=== PATIENT | male | born 1965 | race Caucasian/White ===

== ENCOUNTER 2016-10-14 07:54 | Inpatient (IN) | payer OTHER ==
--- NOTE | ~2016-10-14 | HP ---
Unit #: [id number] #: [id number] Patient: KARI MERCER [id number] [facility]. [place], [place] [address] [id number] Dinora MR#: [id number] NAME: KARI MERCER. ROOM: 75758 Age: 51 Sex: M Admission Date: 10/14/2016 : 1965 Attending Physician: Rosalind Zhao M.D. Primary Care Physician: No Primary Care Physician HISTORY AND PHYSICAL CHIEF COMPLAINT Back pain. HISTORY OF PRESENT ILLNESS The patient is a 51-year-old male with past medical history of epidural abscess, substance abuse, coronary artery disease who presented to the emergency department for evaluation of the above. History is obtained from chart review and discussion with ER staff due to the patient's altered mental status. I also spoke with a family friend, Jayden Read, who was at the bedside. The patient was apparently recently hospitalized at [facility] for epidural abscess. He was discharged to rehab. He has apparently been home for about two weeks. He was moving some furniture and experienced back pain. He then snorted methamphetamine in attempts to relieve the pain (per the family friend). There is no indication that he was trying to harm himself. He was then noted to be quite agitated by family and so EMS was called. Upon arrival in the emergency department, the patient's temperature and pulse were 98.9 and 123 respectively, blood pressure 155/109. He was alert and oriented but again severely agitated. He received 20 mg of Geodon. Laboratory is notable for white blood cell count of 19.6. Urine tox screen is positive for amphetamine and opiates. Lactic acid is 0.8. Chest x-ray shows perihilar opacity. He was given vancomycin in the emergency department. He is being admitted to [facility] for evaluation and further treatment. PAST MEDICAL HISTORY 1. Hospitalized at [facility] for epidural abscess (no records). 2. Coronary artery disease, status post cardiac stent placement. SOCIAL HISTORY The patient has a history of substance abuse including methamphetamines. He is a smoker. FAMILY HISTORY Notable for other family members being substance abusers per the family friend at bedside. ALLERGIES No known allergies. HOME MEDICATIONS Listed as "muscle relaxer." Home medications will need to be reviewed and Unit #: [id number] #: [id number] Patient: KARI MERCER verified. REVIEW OF SYSTEMS A complete review of systems is unobtainable from the patient due to altered mental status. DIAGNOSTIC STUDIES LABORATORY: Urinalysis notable for trace protein. Complete blood count notable for white blood cell count of 19.6, hemoglobin 12.5, hematocrit 38.2. Comprehensive metabolic panel notable for bicarbonate of 20, BUN and creatinine 30 and 1.4 respectively. AST 62. CK is 2738. Urine tox screen positive for amphetamine and opiates. Lactic acid is 0.8. IMAGING: Chest x-ray shows left perihilar opacity. CARDIOVASCULAR: EKG shows sinus tachycardia with a rate of 104 beats per minute. PHYSICAL EXAMINATION VITAL SIGNS: Temperature is 98.9, pulse 123, respirations 21, blood pressure 155/109 (most recently 130/88), oxygen saturation 96% on room air. GENERAL: The patient is a male who is currently sleeping. He received 20 mg of Geodon. HEENT: The head is atraumatic. Mucous membranes are moist. NECK: Supple. Trachea is midline. CARDIOVASCULAR: Regular rate and rhythm. LUNGS: Clear to auscultation bilaterally with no increased work of breathing. ABDOMEN: Soft, nontender with bowel sounds present in all four quadrants. EXTREMITIES: Nontender with no pedal edema. NEUROLOGIC: The patient was alert and oriented x3 on presentation. He is currently sleeping. He does move all extremities. PSYCHIATRIC: The patient was initially quite agitated. SKIN: Skin of examined areas is warm and dry. ASSESSMENT The patient is a 51-year-old male with: 1. Methamphetamine overdose, unintentional. 2. Rhabdomyolysis with CPK of 2738. 3. Possible sepsis. The patient does have a history of epidural abscess. Chest x-ray shows perihilar opacity concerning for possible aspiration. 4. History of epidural abscess (no records). 5. Possible aspiration pneumonia. 6. Coronary artery disease, status post stent placement. 7. Tobacco abuse. PLAN 1. Admit to intermediate level. 2. Consult Dr. Smith regarding substance abuse. 3. Neuro checks. 4. Normal saline at 150 mL an hour. 5. Get records from [facility]. 6. Blood cultures x2. 7. CT of the lumbar and thoracic spine with IV contrast for further evaluation of epidural abscess. 8. Vancomycin IV and Zosyn IV pending further workup. 9. Serial cardiac enzymes. Unit #: [id number] #: [id number] Patient: KARI MERCER 10. Repeat labs in the morning including CPK. 11. Additional workup and consultants based on above. Dictated by Andie Horvath TD: 10/14/2016 12:16 JOB #: [id number] HISTORY AND PHYSICAL X Rosalind Zhao MD X HISTORY AND PHYSICAL
--- NOTE | ~2016-10-14 | CR72 ---
[facility] A Service of [facility] RADIOLOGY TEXT RESULTS PATIENT: KARI MERCER LOCATION: [facility] 338-01 : [birth year] UNIT #: [id number] AGE: [address]: Thiago Rodriguez MD SEX: M ORDER DR: [id number] [facility] [address] [facility]. [place], [place] [address] [id number] I MR#: [id number] Acc #: [id number] NAME: KARI MERCER. : 1965 SEX: M STUDY DATE/TIME: 10/14/2016 09:26 UNIT: [address] ROOM: [facility] STUDY DESCRIPTION: CR Chest Single View Portable Attending Physician: Rosalind Zhao M.D. Ordering Physician: Sixto Mcgregor M.D. Primary Care Physician: No Primary Care Physician MEDICAL IMAGING REPORT This report is preliminary unless electronic signature is present EXAM Chest portable 10/14/2016 0926 hours CLINICAL HISTORY 51-year-old man with altered mental status and shortness of air today. COMPARISON None. FINDINGS Portable upright chest demonstrates normal heart size. Mediastinal and hilar contours are normal. There is mild perihilar vascular crowding. There is mild interstitial change in the left midlung perihilar region with calcified granuloma present. No definite acute pulmonary density on the right. There are no effusions. IMPRESSION Portable exam demonstrates mild perihilar and infrahilar interstitial change on the left with an adjacent calcified granuloma. Vascular crowding and/or atelectasis is favored over pneumonia. Consider followup two-view chest film to reevaluate the left infrahilar region. No effusion or pneumothorax is seen. Dictated by... Lesa Hernandez M.D. THIS IS AN ELECTRONICALLY VERIFIED REPORT Lesa Hernandez M.D. at 10/15/2016 9:17 AM Marc TD: 10/14/2016 14:38 JOB #: [id number] [facility] A Service of [facility] RADIOLOGY TEXT RESULTS PATIENT: KARI MERCER LOCATION: [facility] 338-01 : [birth year] UNIT #: [id number] AGE: [address]: Thiago Rodriguez MD SEX: M ORDER DR: MEDICAL IMAGING REPORT COPY
--- NOTE | ~2016-10-14 | DS ---
Unit #: [id number] #: [id number] Patient: KARI MERCER [id number] [address] [address] [id number] I MR#: [id number] NAME: KARI MERCER. ROOM: 338 Age: 51 Sex: M Admission Date: 10/14/2016 : 1965 Discharge Date: 10/16/2016 Attending Physician: Thiago Rodriguez M.D. Primary Care Physician: No Primary Care Physician DISCHARGE SUMMARY PRIMARY DIAGNOSIS Unintentional methamphetamine overdose. SECONDARY DIAGNOSES 1. Rhabdomyolysis. 2. Possible sepsis with history of epidural abscess. 3. Perihilar opacity on chest x-ray, possibly representing aspiration. 4. Coronary artery disease with history of stent. 5. Tobacco abuse. Patient was admitted to the hospital. He underwent imaging with a CT of the thoracic spine which showed stable changes in the left posterior lung compared to August 2016. No evidence of any primary or secondary spinal involvement. No evidence of any epidural collection. He underwent CT of the lumbar spine as well which showed chronic discitis at L2-L3 without any worsening compared to previous imaging. He also had a chest x-ray. Please see that report for details. The patient's CK level decreased to a level of 780 on the morning of October 15. His urine drug screen was positive for amphetamines and opiates at this hospitalization. Patient ultimately left against medical advice on October 16, 2016, prior to me being able to evaluate him. He was afebrile throughout his hospitalization with stable vital signs. His white blood cell count had improved markedly compared to admission down to a level of 5.8 on October 15. I do not believe he had his labs drawn on the prior to him leaving against medical advice. DISCHARGE DISPOSITION Against medical advice. DISCHARGE STATUS Unable to be determined as patient left AMA prior to being able to be evaluated. Discharge diet, activities and medications are not applicable as patient left against medical advice. Dictated by... Elmo Naqvi M.D. MIQUEL/tashi Unit #: [id number] #: [id number] Patient: KARI MERCER TD: 10/16/2016 13:25 JOB #: [id number] DISCHARGE SUMMARY X Elmo Naqvi MD X DISCHARGE SUMMARY
--- NOTE | ~2016-10-14 | CT96 ---
[facility] A Service of [facility] RADIOLOGY TEXT RESULTS PATIENT: KARI MERCER LOCATION: [facility] 338-01 : [birth year] UNIT #: [id number] AGE: [address]: Rosalind Zhao MD SEX: M ORDER DR: [id number] [facility]. [place], [place] [address] [id number] I MR#: [id number] Acc #: [id number] NAME: KARI MERCER. : 1965 SEX: M STUDY DATE/TIME: 10/14/2016 13:22 UNIT: [address] ROOM: [facility] STUDY DESCRIPTION: CT Lumbar Spine W Cont Attending Physician: Rosalind Zhao M.D. Ordering Physician: Rosalind Zhao M.D. Primary Care Physician: No Primary Care Physician MEDICAL IMAGING REPORT This report is preliminary unless electronic signature is present EXAM Lumbar spine CT with contrast HISTORY Upper and lower back pain. Recent surgery. Back pain for the past day. Previous history of epidural abscess. TECHNIQUE Axial imaging was obtained through the lumbar spine with intravenous contrast. 100 mL of Isovue was used. This CT exam was performed with one or more of the following radiation dose reduction techniques: automatic control, adjustment of mA and/or kV according to patient size, and iterative reconstruction. COMPARISON Examination from 08/21/2016 FINDINGS Postoperative changes of laminectomy are seen at L2 and L3. The L2-3 disc is irregular with sclerotic margins. The laminectomy is new since the previous examination. Endplate sclerosis has increased. No significant progression of bone destruction is seen. No paraspinous fluid collections or enhancing lesions are noted. Degenerative disc disease at L3-4, L4-5 and L5-S1 is again seen and shows no worsening since the previous exam. IMPRESSION Chronic diskitis is noted at L2-3. Since the previous examination sclerosis has increased and no progressive bone destruction is seen. No evidence of any significant worsening since the previous examination. No rim enhancing abscesses are seen either in the epidural space or paraspinous tissues. No changes at the other lumbar levels. Dictated by... [facility] A Service of [facility] RADIOLOGY TEXT RESULTS PATIENT: KARI MERCER LOCATION: [facility] 338-01 : [birth year] UNIT #: [id number] AGE: [address]: Rosalind Zhao MD SEX: M ORDER DR: Kvng Jarquin M.D. THIS IS AN ELECTRONICALLY VERIFIED REPORT Kvng Jarquin M.D. at 10/15/2016 8:20 AM RLTarik/abbi TD: 10/14/2016 19:52 JOB #: [id number] MEDICAL IMAGING REPORT COPY
--- NOTE | ~2016-10-14 | CO ---
Unit #: [id number] #: [id number] Patient: KARI GOMEZ [id number] [facility] [address] [facility]. [place], [place] [address] [id number] MR#: [id number] NAME: KARI GOMEZ. ROOM: 338 Age: 51 Sex: M Admission Date: 10/14/2016 : 1965 Attending Physician: Thiago Rodriguez M.D. Primary Care Physician: Primary Care Physician No Consultation Date: 10/15/2016 CONSULTATION REPORT REASON FOR CONSULTATION Opioid abuse, amphetamine abuse, withdrawal symptoms. HISTORY OF PRESENT ILLNESS Mr. Kari Gomez is a 51-year-old male, seen on 10/15/2016 in room 338 at [facility]. The patient dressed in hospital attire, very mad, angry, upset, agitated. The patient was upset about his substance abuse history. The patient reports that he is upset with his sister. The patient has a history of previous treatment at [facility] in 2013. The patient admitted using amphetamine and opioids. The patient urine drug screen was positive for amphetamine and opioids. The patient reported trouble sleeping, hot and cold sweats, some irritability, restlessness, anxiety, agitation, but currently denied any suicidal or homicidal ideation. Denied any psychotic symptom. The patient was started on Neurontin and Vistaril combination. The patient reports able to sleep better. PAST PSYCHIATRIC HISTORY Remarkable for history of polysubstance abuse and history of inpatient treatment. No history of any suicide attempt. MEDICAL HISTORY History of coronary artery disease, back pain, history of epidural abscess. MEDICATIONS The patient is currently on Neurontin, Vistaril, Desyrel, Zosyn. FAMILY HISTORY AND SOCIAL HISTORY The patient lives with his sister. The patient admitted using opioids and amphetamines. No history of any abuse. REVIEW OF SYSTEMS Complete review of systems is unremarkable except for pain in his back, anxiety, agitation, and mood lability. MENTAL STATUS EXAMINATION General appearance; the patient is average built, dressed in hospital attire, receiving IV fluids, somewhat mad, angry, upset, agitated. Attention span and concentration, fair. Speech, regular rate and coherent. Oriented in time, place, and person. Mood and affect were labile. Thought process was coherent. Thought content, the patient denied any thoughts of harming self or others or any psychotic symptom. Recent and remote memory, fair. Language, able to name object, repeat phrases. Fund of knowledge, fair. Insight and judgment, fair to slightly Unit #: [id number] #: [id number] Patient: KARI GOMEZ. DIAGNOSES Psychiatric: Opioid use disorder, severe, F11.20; amphetamine use disorder, F15.20; mood disorder, not otherwise specified F32.9. Secondary diagnosis: Deferred. Medical diagnosis: Please refer to H and P. Stressors: Psychosocial stressors. ASSESSMENT/PLAN 1. Supportive psychotherapy and psychoeducation provided to the patient. 2. Educated about benefits and side effects of medication and course and prognosis of illness. Advised to continue with the Neurontin 300 mg t.i.d., Vistaril 50 mg t.i.d. If needed, consider further adjustment of medication. Please feel free to call if any questions, telephone #[phone]. Dictated by... Andie Lau/bonita TD: 10/16/2016 01:11 JOB #: [id number] CONSULTATION REPORT X Bishnu Smith MD X CONSULTATION REPORT
--- NOTE | ~2016-10-14 | CT120 ---
[facility] A Service of [facility] RADIOLOGY TEXT RESULTS PATIENT: KARI MERCER LOCATION: [facility] 338- : [birth year] UNIT #: [id number] AGE: [address]: Thiago Rodriguez MD SEX: M ORDER DR: [id number] [facility] [address] [facility]. [place], [place] [address] [id number] I MR#: [id number] Acc #: [id number] NAME: KARI MERCER. : 1965 SEX: M STUDY DATE/TIME: 10/14/2016 13:22 UNIT: [address] ROOM: [facility] STUDY DESCRIPTION: CT Thoracic Spine W Cont Attending Physician: Rosalind Zhao M.D. Ordering Physician: Rosalind Zhao M.D. Primary Care Physician: No Primary Care Physician MEDICAL IMAGING REPORT This report is preliminary unless electronic signature is present EXAM Thoracic spine CT with contrast date of study is 10/14/2016 PROCEDURE Axial contrast-enhanced thoracic spine CT with multiplanar reformats. COMPARISON Abdominal and pelvic CT dated 08/20/2016. CLINICAL HISTORY History of epidural abscess and spinal fusion. TECHNIQUE This CT exam was performed with one or more of the following radiation dose reduction techniques: automatic control, adjustment of mA and/or kV according to patient size, and iterative reconstruction. FINDINGS There is a very slight scoliosis but no cassidy or retrolisthesis fracture or bone erosion or destruction. There is no mediastinal mass, though there are changes in the left posterior lung, which are probably unchanged since 08/20/2016. There is no evidence of bony erosion or destruction or intraspinal or paraspinal fluid collection or other acute spinal abnormality. IMPRESSION Stable changes in the left posterior lung. No gross apparent change since 08/20/2016. No evidence of secondary or primary spinal involvement. No spinal bone erosion or destruction or acute abnormality. No evidence of epidural collection or other acute finding. Dictated by... Naga Rincon M.D. [facility] A Service of [facility] RADIOLOGY TEXT RESULTS PATIENT: KARI MERCER LOCATION: [facility] 338-01 : [birth year] UNIT #: [id number] AGE: [address]: Thiago Rodriguez MD SEX: M ORDER DR: THIS IS AN ELECTRONICALLY VERIFIED REPORT Naga Rincon M.D. at 10/15/2016 4:12 PM TEV/abbi TD: 10/14/2016 20:06 JOB #: [id number] MEDICAL IMAGING REPORT COPY
--- NOTE | ~2016-10-14 | EKG ---
PATIENT: KARI MERCER UNIT #: [id number] Ventricular Rate: 104 BPM Atrial Rate: 104 BPM P-R Interval: 132 ms QRS Duration: 84 ms Q-T Interval: 326 ms QTC Calculation(Bezet): 428 ms P Cylinder: 86 degrees Calculated R Cylinder: 79 degrees Calculated T Cylinder: 81 degrees Diagnosis Line: Sinus tachycardia Diagnosis Line: Otherwise normal ECG Diagnosis Line: When compared with ECG of 25-JAN-2014 11:52, Diagnosis Line: Vent. rate has increased BY 37 BPM Diagnosis Line: Confirmed by KIRSTEN MOON MD ([id number]) on 10/15/2016 Diagnosis Line: 12:04:25 PM INTERPRETING MD: RED WALKER
--- NOTE | ~2016-10-14 | CO ---
Unit #: [id number] #: [id number] Patient: KARI MERCER [id number] [address] [address] [id number] MR#: [id number] NAME: KARI MRECER. ROOM: 338 Age: 51 Sex: M Admission Date: 10/14/2016 : 1965 Attending Physician: Thiago Rodriguez M.D. Primary Care Physician: No Primary Care Physician Consultation Date: 10/16/2016 CONSULTATION REPORT REASON FOR CONSULTATION Antibiotic management in a patient with a history of recent epidural abscess. HISTORY OF PRESENT ILLNESS This is a 51-year-old male with a history of IV drug abuse that was recently at [facility] in August of 2016. [facility] records were reviewed. The patient, at that time, had an MRSA sepsis with lumbar epidural abscess and left psoas abscess, status post IR drainage of his psoas abscess and epidural abscess drainage by neuro surgery. The patient was on vancomycin until 10/04/2016 which the patient reports that he took at a snf. His SIXTO at that facility was negative. The patient reports that he was discharged and he was at home for a few weeks. Patient then was brought to the emergency room by his sister. Patient sitting in a chair. He does not know why his sister brought him. She said he was "acting goofy." Patient currently denies any fevers/chills at home. He reports he is unaware of any drainage from his spinal wound. He does report increasing back pain; however, he is unclear why pain meds are not being administered to him. Patient was placed on vancomycin and ID was asked to evaluate for further evaluation. Patient was found on admission also to have some severe agitation, rhabdomyolysis and questionable aspiration pneumonia. PAST MEDICAL HISTORY 1. Coronary artery disease, status post stent placement in the past. 2. Chronic back pain. 3. IV drug abuse. PAST SURGICAL HISTORY Includes L2-3 diskitis with left psoas abscess drainage and L2-3 epidural abscess, status post drainage. ALLERGIES No known allergies. MEDICATIONS Patient is currently on vancomycin and Zosyn. For other medications, please refer to patient's MAR. SOCIAL HISTORY Positive IV drug abuse. REVIEW OF SYSTEMS Patient denies any headache to me. He denies any fever, chills or sweats Unit #: [id number] #: [id number] Patient: KARI MERCER at home. he denies any chest pain. He denies any shortness of breath, cough or wheezing. He denies any nausea, vomiting or diarrhea. He does report some positive back pain but is unaware of any drainage. He denies any non-healing wounds. He denies any UTI signs or symptoms. PHYSICAL EXAMINATION VITAL SIGNS: Temperature 97.8, pulse is 81, blood pressure 137/76, respiratory rate is 22. GENERAL: This is an awake male who is sitting in the chair comfortably. HEENT/NECK: His pupils are equal. His neck is supple. CARDIOVASCULAR: S1, S2. Regular rate and rhythm. PULMONARY: Clear to auscultation bilaterally with no wheezes or rhonchi noted. ABDOMEN: Positive bowel sounds. Soft and nontender. EXTREMITIES: No clubbing, cyanosis or edema. SPINE EXAM: Shows in the lumbar region he does have a healing scabbed incision with some scant serous drainage. There is no purulent drainage noted. There is some surrounding healing tissue but no cellulitis. DIAGNOSTIC STUDIES LABORATORY: BUN 14, creatinine 0.7, sodium 136, potassium 3.9, chloride 111, CO2 23, bilirubin 0.8, AST 44, ALT 31. CK total 780 which is improved from 2738 on admission. Lactic acid 0.9. White blood cell count of 5.8 which is improved from 19.6. Hemoglobin 11.2, hematocrit 34.1, platelets 248. Tox screen shows positive amphetamines and opiates. Urinalysis is unremarkable. Blood cultures are currently pending. Outside hospital blood cultures show MRSA. No ANI is known at this time. Blood cultures were negative at discharge on 08/26/2016. He had a body fluid culture from that admission that also showed MRSA. IMAGING: Chest x-ray - perihilar and infrahilar interstitial changes on the left side with vascular crowding and atelectasis favoring pneumonia. CT scan of the lumbar spine with contrast shows chronic discitis at L2-3. No progressive bone destruction, no evidence of worsening since prior examination. No rim-enhancing abscess. No paraspinal abscess. CT scan of the thoracic spine is negative. IMPRESSION This is a 51-year-old male with IV drug abuse, recently at [facility] in August 2016 secondary to MRSA sepsis with lumbar epidural abscess of L2-3 region, status post drainage and left psoas abscess, status post drainage. Patient was on vancomycin until October 04, 2016, at the snf. At that admission his SIXTO was negative for vegetation. Patient has been at home and his sister presented him to the hospital due to altered mental status. The patient was found to have rhabdomyolysis and suspected overdose and aspiration pneumonia. CT scan is negative for acute changes. Blood cultures are currently negative to date. However, there is concern for aspiration pneumonia. At this time, agree with vancomycin and Zosyn. Clinically, patient does not have current cough or Unit #: [id number] #: [id number] Patient: KARI MERCER shortness of breath and he is not on oxygen. Patient does have some drainage from his lumbar wound. However, this is scant and appears to be healing and there is no purulent drainage. At this time, will check a CRP and sed rate. Will have the nursing staff call with any positive blood cultures and will also check labs in the morning. There is concern presented by this patient that he would like to leave against medical advice. I have instructed this patient that there are multiple things going on with him and he needs to stay for further medical management and leaving could result in . The patient is aware of his condition and he said he still may leave. Thank you for allowing us to participate in the care of this patient. Further recommendations to follow pending patient's clinical course. Dictated by... Tanya Medrano A.P.R.N. for Andie Krueger/tashi TD: 10/16/2016 12:45 JOB #: [id number] CONSULTATION REPORT X X CONSULTATION REPORT
[~2016-10-14 07:54] MED LIST: AMOXIL500 M1 PO; FIORICET; PREDNISONE10 MG PO; ROBAXIN 750750 M1 PO; STOOL SOFTNER; TYLENOL #3 PO; ULTRAM PO
[2016-10-14 08:18] LABS: URINE SOURCE CLEAN CATCH
[2016-10-14 08:23] LABS: URINE APPEARANCE CLOUDY; URINE BILIRUBIN NEG (NEG); URINE BLOOD NEG (NEG); URINE COLOR YELLOW; URINE GLUCOSE NEG (NEG); URINE KETONE TRACE (NEG); URINE LEUKOCYTE ESTERASE NEG (NEG); URINE NITRATE NEG (NEG); URINE PROTEIN TRACE (NEG); URINE SPECIFIC GRAVITY 1.029 (1.003-1.035); URINE UROBILINOGEN 0.2 MG/DL (NEG)
[2016-10-14 08:24] LABS: BASOPHIL% 0.2 % (0-2.5); EOSINOPHIL% 0.1 % (0.0-7.0); HEMATOCRIT 38.2 % (38.0-50.0); HEMOGLOBIN 12.5 gm/dL (13.0-16.0); LYMPHOCYTE# 1.7 X10e3 (1.0-3.5); LYMPHOCYTE% 8.7 % (17.0-45.0); MEAN CELL VOLUME 85.5 FL (83-96); MEAN CORPUSCULAR HGB CONC 32.7 g/dL (30-36); MEAN PLATELET VOLUME 7.1 FL (6.5-11.5); MONOCYTE# 2.8 X10e3 (0-1.0); NEUTROPHIL# 15.1 X10e3 (1.5-7.1); PLATELET COUNT 345 X10e3 (140-420); RED BLOOD COUNT 4.47 X10e (3.90-5.60); RED CELL DISTRIBUTION WIDTH 14.3 % (11.0-15.5); WHITE BLOOD COUNT 19.6 X10e3 (4.0-10.5)
[2016-10-14 08:26] LABS: CULTURE INDICATED? NO; DIFF IND YES
[2016-10-14 08:48] LABS: PLATELET ESTIMATE NORMAL (NORMAL)
[2016-10-14 08:49] LABS: ANISOCYTOSIS SL
[2016-10-14 08:59] LABS: ALBUMIN SERUM 4.6 g/dL (3.5-5.0); BILIRUBIN, DIRECT 0.2 mg/dL (0.0-0.2); BILIRUBIN,INDIRECT 0.8 mg/dL (0.0-0.9); BUN/CREATININE RATIO 21.42; CREATININE SERUM 1.4 mg/dL (0.6-1.4); POTASSIUM 4.2 mmol/L (3.5-5.1); PROTEIN TOTAL SERUM 7.5 g/dL (6.0-8.3)
[2016-10-14 10:04] LABS: AMPHETAMINE POS (NEG); BARBITURATES NEG (NEG); BENZODIAZEPINES NEG (NEG); COCAINE NEG (NEG); MARIJUANA NEG (NEG); OPIATES POS (NEG); TRICYCLIC ANTIDEPRESSANTS NEG (NEG); U METHADONE NEG (NEG)
[2016-10-14 12:12] LABS: %MB 0.9 % (0.0-4.0); MB 19.3 ng/ml
[2016-10-14 17:04] LABS: %MB 0.9 % (0.0-4.0); MB 15.2 ng/ml
[2016-10-14 23:19] LABS: MB 11.9 ng/ml
[2016-10-15 06:03] LABS: BASOPHIL% 0.4 % (0-2.5); EOSINOPHIL# 0.3 X10e3 (0-0.7); EOSINOPHIL% 4.4 % (0.0-7.0); HEMATOCRIT 34.1 % (38.0-50.0); HEMOGLOBIN 11.2 gm/dL (13.0-16.0); LYMPHOCYTE# 1.5 X10e3 (1.0-3.5); LYMPHOCYTE% 26.2 % (17.0-45.0); MEAN CELL VOLUME 86.4 FL (83-96); MEAN CORPUSCULAR HEMOGLOBIN 28.4 PG (28-34); MEAN CORPUSCULAR HGB CONC 32.9 g/dL (30-36); MEAN PLATELET VOLUME 7.3 FL (6.5-11.5); MONOCYTE% 17.3 % (3.0-12.0); NEUTROPHIL% 51.7 % (40-75); PLATELET COUNT 248 X10e3 (140-420); RED BLOOD COUNT 3.95 X10e (3.90-5.60); RED CELL DISTRIBUTION WIDTH 14.6 % (11.0-15.5)
[2016-10-15 06:11] LABS: WHITE BLOOD COUNT 5.8 X10e3 (4.0-10.5)
[2016-10-15 06:12] LABS: DIFF IND NO
[2016-10-15 06:47] LABS: ALBUMIN SERUM 3.1 g/dL (3.5-5.0); ALKALINE PHOSPHATASE 53 U/L (32-92); ALT (SGPT) 31 U/L (10-40); AST (SGOT) 44 U/L (10-42); BILIRUBIN,TOTAL 0.8 mg/dL (0.2-2.0); BLOOD UREA NITROGEN 14 mg/dL (9-23); CALCIUM SERUM 7.7 mg/dL (8.4-10.2); CARBON DIOXIDE 23 mmol/L (22-31); CHLORIDE 111 mmol/L (100-111); CPK (CREATINE PHOSPHOKINASE) 780 IU/L (36-174); CREATININE SERUM 0.7 mg/dL (0.6-1.4); GLOM FILT RATE Estimated ABOVE60 mL/min (>60); GLUCOSE FASTING 95 mg/dL (70-110); POTASSIUM 3.9 mmol/L (3.5-5.1); PROTEIN TOTAL SERUM 5.4 g/dL (6.0-8.3); SODIUM 136 mmol/L (135-145)
== END 2016-10-16 09:45 | disposition left against medical advice (07) | DRG 917 ==
LOC: CED 07:54 → CEDOF 09:25 → C3A PCU 14:37
PROVIDERS: Emergency Medicine; Family Medicine
DX: T43.621A Poisoning by amphetamines, accidental (unintentional), initial encounter (principal); J69.0 Pneumonitis due to inhalation of food and vomit; A41.9 Sepsis, unspecified organism; M62.82 Rhabdomyolysis; F15.20 Other stimulant dependence, uncomplicated; F11.20 Opioid dependence, uncomplicated; I25.10 Atherosclerotic heart disease of native coronary artery without angina pectoris; Z95.5 Presence of coronary angioplasty implant and graft; M54.9 Dorsalgia, unspecified; F17.210 Nicotine dependence, cigarettes, uncomplicated; F39 Unspecified mood [affective] disorder
CPT/HCPCS: 36415; 71010; 72129; 72132; 80048; 80053; 80076; 80307; 81003; 82550; 82553; 83605; 84484; 85025; 87040; 93005; 94640; 94760; 96360; 96372; 99291; J2543; J3370; J3486; Q9967